=== PATIENT | male | born 1965 | race Two or more races ===

== ENCOUNTER 2017-12-05 22:38 | Observation (INO) | payer MEDICAID ==
[~2017-12-05] VITALS: Ht 180.3 cm; Wt 94.5 kg
[~2017-12-05 22:38] MED LIST: ASPI-529 PO; DIPH-423 PO; FAMO-128 PO; GLIM1TAB46 PO; HYDR-3965 PO; LANTUS SQ; LISI40TA4 PO; MAGN500C16 PO; METF500T PO; METH4TAB3 PO; ROSU40TA PO
[2017-12-05 23:01] LABS: BASOPHILS % (AUTO) 0.5 % (0-1); EOSINOPHILS # (AUTO) 0.6 X10'3 (0-0.9); EOSINOPHILS % (AUTO) 9.8 % (0-6); HEMATOCRIT 38.3 % (42.0-52.0); HEMOGLOBIN 13.3 g/dl (14.0-17.9); LYMPHOCYTES # (AUTO) 1.8 X10'3 (1.1-4.8); LYMPHOCYTES % (AUTO) 28.3 % (21-51); MEAN CORPUSCULAR HGB CONC 34.7 % (33.0-36.5); MEAN CORPUSCULAR VOLUME 92.2 FL (78-98); MONOCYTES # (AUTO) 0.5 X10'3 (0-0.9); NEUTROPHILS # (AUTO) 3.5 X10'3 (1.8-7.7); NEUTROPHILS % (AUTO) 53.4 % (42-75); PLATELET COUNT 146 X10'3 (140-440); RED BLOOD COUNT 4.16 X10'6 (4.70-6.10); RED CELL DISTRIBUTION WIDTH 13.2 % (11.5-14.5); WHITE BLOOD COUNT 6.5 X10'3 (4.5-11.0)
[2017-12-05 23:13] LABS: PARTIAL THROMBOPLASTIN TIME 26 SECONDS (22-32); PROTHROMBIN TIME 9.9 SECONDS (9.0-12.0)
[2017-12-05 23:15] LABS: ALANINE AMINOTRANSFERASE 35 U/L (12-78); ALBUMIN 3.6 G/DL (3.4-5.0); ALBUMIN/GLOBULIN RATIO 0.8 (1.1-1.5); ALKALINE PHOSPHATASE 73 IU/L (46-116); ANION GAP 10 (8-16); ASPARTATE AMINO TRANSFERASE 24 U/L (10-37); BILIRUBIN,TOTAL 0.4 MG/DL (0.1-1.0); BLOOD UREA NITROGEN 23 MG/DL (7-18); BUN/CREATININE RATIO 13.1 (5.4-32.0); CALCIUM 9.3 MG/DL (8.5-10.1); CHLORIDE 102 MMOL/L (99-107); CREATININE 1.75 MG/DL (0.60-1.10); GLUCOSE 172 MG/DL (70-104); POTASSIUM 4.5 MMOL/L (3.5-5.1); SODIUM 140 MMOL/L (135-145); TOTAL CARBON DIOXIDE 28.1 MMOL/L (24-32); TOTAL PROTEIN 8.2 G/DL (6.4-8.2); eGFR 41 ML/MIN
[2017-12-05] MEDS ORDERED: heparin 10,000 units/1 ML INJ IV PRN (23:40)
[2017-12-05] MEDS ORDERED: heparin 10,000 units/1 ML INJ IV ONE (23:40)
[2017-12-06] MEDS ORDERED: acetaminophen 325mg tablet PO PRN (00:20)
[2017-12-06] MEDS ORDERED: HYDROmorphone inj. 0.5 MG/0.5 ML DISP.SYRIN IV PRN (00:20)
[2017-12-06] MEDS ORDERED: mag hydrox/Alum hydrox/simeth 30ml oral suspension PO PRN (00:20)
[2017-12-06] MEDS ORDERED: ondansetron/PF 4mg/2ml inj IV PRN (00:20)
[2017-12-06] MEDS ORDERED: dextrose ORAL solution 15 GM/59 ML bottle PO PRN ×2 (00:20)
[2017-12-06] MEDS ORDERED: MESSAGE TO PHARMACY PO ONE (00:20)
[2017-12-06] MEDS ORDERED: glucagon, human recombinant 1mg kit SUBCUT PRN (00:20)
[2017-12-06] MEDS ORDERED: potassium Cl 20 mEq SR tablet PO PRN ×2 (00:20)
[2017-12-06] MEDS ORDERED: potassium Cl 40MEQ/NS 500ml 500 ML IV PRN ×2 (00:20)
[2017-12-06] MEDS ORDERED: magnesium hydroxide 30ml (MOM) UD suspension PO PRN (00:20)
[2017-12-06] MEDS ORDERED: dextrose 50%-water 50ml dispensing syringe IV PRN ×2 (00:20)
[2017-12-06] MEDS ORDERED: HYDROcodone/acetaminophen 5mg/325mg tablet PO PRN (00:25)
[2017-12-06] MEDS: carVEDilol 3.125mg tablet PO SCH ×2 (00:47→08:54)
[2017-12-06 02:18] LABS: HEMOGLOBIN A1C 7.5 % (4.5-6.2)
[2017-12-06 05:11] LABS: BASOPHILS % (AUTO) 0.5 % (0-1); EOSINOPHILS # (AUTO) 0.7 X10'3 (0-0.9); EOSINOPHILS % (AUTO) 9.9 % (0-6); HEMATOCRIT 34.8 % (42.0-52.0); LYMPHOCYTES # (AUTO) 1.8 X10'3 (1.1-4.8); MEAN CORPUSCULAR HEMOGLOBIN 31.7 PG (27.0-31.0); MEAN CORPUSCULAR HGB CONC 34.5 % (33.0-36.5); MEAN PLATELET VOLUME 8.1 FL (7.4-10.4); MONOCYTES # (AUTO) 0.5 X10'3 (0-0.9); MONOCYTES % (AUTO) 7.4 % (2-12); NEUTROPHILS % (AUTO) 56.2 % (42-75); PLATELET COUNT 126 X10'3 (140-440); RED BLOOD COUNT 3.78 X10'6 (4.70-6.10); RED CELL DISTRIBUTION WIDTH 13.3 % (11.5-14.5); WHITE BLOOD COUNT 7.1 X10'3 (4.5-11.0)
[2017-12-06] MEDS ORDERED: METF10002 (07:30)
[2017-12-06] MEDS ORDERED: VARD10TA18 (07:35)
[2017-12-06] MEDS: K and/or MAG REPLACEMENT MC SCH (08:00)
[2017-12-06] MEDS: heparin, porcine 5000 units/ml vial SQ SCH ×3 (08:00→16:00)
[2017-12-06] MEDS: aspirin 81mg tab.chew PO SCH ×2 (08:30→10:41)
[2017-12-06] MEDS: atorvastatin 20mg tablet PO SCH (08:54)
[2017-12-06] MEDS: famotidine 20mg tablet PO SCH ×2 (08:54→20:06)
[2017-12-06] MEDS ORDERED: carvedilol 6.25mg tablet PO ONE (11:20)
[2017-12-06] MEDS ORDERED: carVEDilol 3.125mg tablet PO ONE (11:20)
[2017-12-06] MEDS ORDERED: carVEDilol 12.5mg tablet PO ONE (14:50)
[2017-12-06] MEDS ORDERED: LORazepam 1 MG tablet PO ONE (16:30)
[2017-12-06] MEDS ORDERED: carVEDilol 12.5mg tablet PO SCH (20:00)
[2017-12-06] MEDS: carVEDilol 12.5mg tablet PO SCH (20:06)
[2017-12-06] MEDS ORDERED: insulin glargine (Lantus) pen - multi-dose SQ SCH (21:00)
[2017-12-06 21:30] VITALS: BP 122/69
[2017-12-06] MEDS: insulin Lispro (HumaLOG) vial - multi-dose SQ SCH (23:01)
[2017-12-07] VITALS: BP 112/74
[2017-12-07] MEDS: heparin, porcine 5000 units/ml vial SQ SCH ×2 (00:43→08:35)
[2017-12-07 05:23] LABS: BASOPHILS % (AUTO) 0.7 % (0-1); EOSINOPHILS # (AUTO) 0.6 X10'3 (0-0.9); EOSINOPHILS % (AUTO) 9.7 % (0-6); HEMATOCRIT 33.9 % (42.0-52.0); HEMOGLOBIN 11.7 g/dl (14.0-17.9); LYMPHOCYTES # (AUTO) 1.6 X10'3 (1.1-4.8); LYMPHOCYTES % (AUTO) 25.9 % (21-51); MEAN CORPUSCULAR HEMOGLOBIN 31.6 PG (27.0-31.0); MEAN CORPUSCULAR HGB CONC 34.6 % (33.0-36.5); MEAN CORPUSCULAR VOLUME 91.3 FL (78-98); MEAN PLATELET VOLUME 8.7 FL (7.4-10.4); MONOCYTES # (AUTO) 0.5 X10'3 (0-0.9); MONOCYTES % (AUTO) 8.8 % (2-12); NEUTROPHILS # (AUTO) 3.4 X10'3 (1.8-7.7); NEUTROPHILS % (AUTO) 54.9 % (42-75); PLATELET COUNT 126 X10'3 (140-440); RED BLOOD COUNT 3.71 X10'6 (4.70-6.10); RED CELL DISTRIBUTION WIDTH 13.1 % (11.5-14.5); WHITE BLOOD COUNT 6.1 X10'3 (4.5-11.0)
[2017-12-07 05:51] LABS: ALBUMIN 2.9 G/DL (3.4-5.0); ANION GAP 8 (8-16); BLOOD UREA NITROGEN 26 MG/DL (7-18); BUN/CREATININE RATIO 14.8 (5.4-32.0); CALCIUM 9.4 MG/DL (8.5-10.1); CHLORIDE 103 MMOL/L (99-107); CHOL/HDL RATIO 2.7 (0.00-4.99); CHOLESTEROL 134 MG/DL (0-200); CREATININE 1.76 MG/DL (0.60-1.10); GLUCOSE 288 MG/DL (70-104); HDL CHOLESTEROL 50 MG/DL (35-60); LDL CHOLESTEROL 65 MG/DL (50-100); POTASSIUM 4.3 MMOL/L (3.5-5.1); SODIUM 140 MMOL/L (135-145); TOTAL CARBON DIOXIDE 29.2 MMOL/L (24-32); TRIGLYCERIDES 137 MG/DL (20-135); eGFR 41 ML/MIN
[2017-12-07 07:30] VITALS: BP 119/81
[2017-12-07] MEDS: K and/or MAG REPLACEMENT MC SCH (08:00)
[2017-12-07] MEDS: famotidine 20mg tablet PO SCH (08:29)
[2017-12-07] MEDS: aspirin 81mg tab.chew PO SCH (08:29)
[2017-12-07] MEDS: atorvastatin 20mg tablet PO SCH (08:29)
[2017-12-07] MEDS: carVEDilol 12.5mg tablet PO SCH (08:29)
[2017-12-07] MEDS: insulin Lispro (HumaLOG) vial - multi-dose SQ SCH (08:44)
[2017-12-07 11:30] VITALS: BP 123/82
[2017-12-07] MEDS ORDERED: CARV-50 PO (12:56)
== END 2017-12-07 13:45 | disposition home or self-care (01) ==
LOC: ER 22:38 → ED HOLD 12-06 00:20 → EDBEDREQ 12-06 20:53 → SUR 3N 12-06 21:29 → CMPBEDREQ 12-06 21:29
PROVIDERS: ADMIT Family Medicine; ATTEND Family Medicine
DX: R07.89 Other chest pain (principal); I12.9 Hypertensive chronic kidney disease with stage 1 through stage 4 chronic kidney disease, or unspecified chronic kidney disease; E11.22 Type 2 diabetes mellitus with diabetic chronic kidney disease; N18.9 Chronic kidney disease, unspecified; I25.110 Atherosclerotic heart disease of native coronary artery with unstable angina pectoris; E78.5 Hyperlipidemia, unspecified; E78.00 Pure hypercholesterolemia, unspecified; I45.10 Unspecified right bundle-branch block; I71.00 Dissection of unspecified site of aorta; J40 Bronchitis, not specified as acute or chronic; Z86.73 Personal history of transient ischemic attack (TIA), and cerebral infarction without residual deficits; Z86.19 Personal history of other infectious and parasitic diseases; Z83.3 Family history of diabetes mellitus
CPT/HCPCS: 36415; 71045; 71550; 80048; 80053; 80061; 82948; 83036; 84484; 85025; 85610; 85730; 86885; 86900; 86901; 87070; 93005; 93306; 93978; 96372; 99291; G0378; J1644; J1815; J7030

== ENCOUNTER 2018-03-10 13:35 | Emergency (ER) | payer MEDICAID ==
[~2018-03-10] VITALS: Ht 180.3 cm; Wt 103.7 kg
[~2018-03-10 13:35] MED LIST changes: +CARV-50 PO; -DIPH-423 PO; -LISI40TA4 PO; -METH4TAB3 PO; +VARD10TA18
[2018-03-10 13:41] VITALS: BP 160/87
[2018-03-10] MEDS ORDERED: CETI1TAB PO (15:20)
== END 2018-03-10 15:33 | disposition home or self-care (01) ==
LOC: ER 13:35
DX: S00.31XA Abrasion of nose, initial encounter (principal); I25.10 Atherosclerotic heart disease of native coronary artery without angina pectoris; E78.00 Pure hypercholesterolemia, unspecified; I10 Essential (primary) hypertension; E11.9 Type 2 diabetes mellitus without complications; Z86.73 Personal history of transient ischemic attack (TIA), and cerebral infarction without residual deficits; Z56.0 Unemployment, unspecified; Z88.8 Allergy status to other drugs, medicaments and biological substances; Z79.84 Long term (current) use of oral hypoglycemic drugs; Z79.82 Long term (current) use of aspirin; Z79.4 Long term (current) use of insulin; Z79.899 Other long term (current) drug therapy; X58.XXXA Exposure to other specified factors, initial encounter; Y93.89 Activity, other specified; Y92.89 Other specified places as the place of occurrence of the external cause; Y99.8 Other external cause status
CPT/HCPCS: 99283

== ENCOUNTER 2018-03-20 01:28 | Emergency (ER) | payer MEDICAID ==
[~2018-03-20] VITALS: Ht 180.3 cm; Wt 106.0 kg
[~2018-03-20 01:28] MED LIST changes: +CETI1TAB PO
[2018-03-20 01:32] VITALS: BP 168/106
[2018-03-20] MEDS ORDERED: dexamethasone sod phosphate 10mg/ml inj PO STA (02:05)
== END 2018-03-20 02:31 | disposition home or self-care (01) ==
LOC: ER 01:28
DX: J31.0 Chronic rhinitis (principal); E11.9 Type 2 diabetes mellitus without complications; I10 Essential (primary) hypertension; I25.10 Atherosclerotic heart disease of native coronary artery without angina pectoris; E78.00 Pure hypercholesterolemia, unspecified; Z86.73 Personal history of transient ischemic attack (TIA), and cerebral infarction without residual deficits; Z88.8 Allergy status to other drugs, medicaments and biological substances; Z79.82 Long term (current) use of aspirin; Z79.4 Long term (current) use of insulin; Z79.84 Long term (current) use of oral hypoglycemic drugs; Z79.899 Other long term (current) drug therapy; Z56.0 Unemployment, unspecified
CPT/HCPCS: 99281; J1100

== ENCOUNTER 2018-08-21 16:17 | Emergency (ER) | payer MEDICAID ==
[~2018-08-21] VITALS: Ht 180.3 cm; Wt 102.0 kg
[2018-08-21] MEDS ORDERED: normal saline 1000ML IV soln IVB STA (16:34)
[2018-08-21] MEDS ORDERED: methylPREDNISolone sod succ 125mg/2ml vial IV ONE (16:35)
[2018-08-21] MEDS ORDERED: famotidine/PF 10 mg/ml inj IV ONE (16:35)
[2018-08-21] MEDS ORDERED: diphenhydrAMINE 50 mg/ml inj IV ONE ×2 (16:35→19:35)
[2018-08-21 17:44] VITALS: BP 119/74
[2018-08-21] MEDS ORDERED: OMEP40CA37 PO (19:29)
[2018-08-21] MEDS ORDERED: DIPH25CA83 PO (19:29)
[2018-08-21] MEDS ORDERED: PRED20TA PO (19:29)
== END 2018-08-21 19:51 | disposition left against medical advice (07) ==
LOC: ER 16:17
DX: T78.3XXA Angioneurotic edema, initial encounter (principal); T46.4X5A Adverse effect of angiotensin-converting-enzyme inhibitors, initial encounter; E78.00 Pure hypercholesterolemia, unspecified; I10 Essential (primary) hypertension; I25.10 Atherosclerotic heart disease of native coronary artery without angina pectoris; E11.9 Type 2 diabetes mellitus without complications; Z56.0 Unemployment, unspecified; Z79.82 Long term (current) use of aspirin; Z79.4 Long term (current) use of insulin; Z86.73 Personal history of transient ischemic attack (TIA), and cerebral infarction without residual deficits; Z88.8 Allergy status to other drugs, medicaments and biological substances; Y92.89 Other specified places as the place of occurrence of the external cause
CPT/HCPCS: 96374; 96375; 96376; 99283; J1200; J2930; J3490; J7030

== ENCOUNTER 2018-09-07 19:53 | Emergency (ER) | payer MEDICAID ==
[~2018-09-07] VITALS: Ht 180.3 cm; Wt 107.0 kg
[~2018-09-07 19:53] MED LIST changes: +DIPH25CA83 PO; +OMEP40CA37 PO; +PRED20TA PO
[2018-09-07 19:58] VITALS: BP 176/67
[2018-09-07] MEDS ORDERED: HYDR-3965 PO (20:55)
[2018-09-07] MEDS ORDERED: ibuprofen tablet 400 MG TABLET PO ONE (20:55)
== END 2018-09-07 21:25 | disposition home or self-care (01) ==
LOC: ER 19:54
DX: M25.511 Pain in right shoulder (principal); I25.10 Atherosclerotic heart disease of native coronary artery without angina pectoris; E78.00 Pure hypercholesterolemia, unspecified; I10 Essential (primary) hypertension; E11.9 Type 2 diabetes mellitus without complications; Z86.73 Personal history of transient ischemic attack (TIA), and cerebral infarction without residual deficits; Z56.0 Unemployment, unspecified; Z79.82 Long term (current) use of aspirin; Z79.4 Long term (current) use of insulin; Z88.8 Allergy status to other drugs, medicaments and biological substances; W18.30XA Fall on same level, unspecified, initial encounter; Y93.89 Activity, other specified; Y92.89 Other specified places as the place of occurrence of the external cause; Y99.8 Other external cause status
CPT/HCPCS: 73030; 99283